=== PATIENT | male | born 1930 | race Caucasian/White ===

== ENCOUNTER 2016-12-20 09:02 | Inpatient (IN) | payer OTHER ==
[~2016-12-20] VITALS: Ht 185.4 cm; Wt 91.1 kg
[~2016-12-20 09:02] MED LIST: AMOX1TAB64 PO; ASPI-515 PO; ATOR40TA PO; CIPR500T87 PO; CLIN300C93 PO; CLON-275 PO; CLON0.1T12 PO; FURO-93 PO; GUAI200T3; HYDR-3341 PO; INSU100V5 SQ; INSU100V8 SQ; ISOS30TA PO; LEVO125T5 PO; OXYC15TA PO; OXYC1TAB7 PO; OXYC20TA2 PO
[2016-12-20] MEDS ORDERED: SODIUM CHLORIDE FLUSH 10ML SYR IVF ONE (10:00)
[2016-12-20 11:02] LABS: BLOOD UREA NITROGEN 24 mg/dL (7-18)
[2016-12-20 11:07] LABS: ASPARTATE AMINO TRANSFERASE 15 U/L (15-37)
[2016-12-20 11:08] LABS: IS PT STATUS REG ER OR PRE ER? YES
[2016-12-20] MEDS ORDERED: ONDANSETRON 2MG/ML, 2ML ONE ×2 (12:51→15:15)
[2016-12-20] MEDS ORDERED: ATROPINE SYRINGE 0.1 MG/ML, 10ML ONE (13:43)
[2016-12-20] MEDS ORDERED: LORazepam 2 MG/ML, 1ML ONE (14:20)
[2016-12-20] MEDS ORDERED: LORazepam 2 MG/ML, 1ML IVPush ONE (14:30)
[2016-12-20] MEDS ORDERED: SODIUM CHLORIDE FLUSH 10ML SYR IVF PRN (15:00)
[2016-12-20] MEDS ORDERED: MORPHINE SULFATE 4 MG/ML, 1ML ONE (15:15)
[2016-12-20] MEDS ORDERED: CEFTRIAXONE PMX 1GM/50ML 50 ML ONE (15:16)
[2016-12-20] MEDS ORDERED: MORPHINE SULFATE 4 MG/ML, 1ML IVPush PRN ×2 (15:30→19:30)
[2016-12-20] MEDS: CEFTRIAXONE PMX 1GM/50ML 50 ML IVPB ONE ×2 (15:30→16:45)
[2016-12-20] MEDS ORDERED: ONDANSETRON 2MG/ML, 2ML IVPush ONE (15:30)
[2016-12-20] MEDS ORDERED: ALBUTEROL/IPRATROPIUM 2.5MG/0.5MG, 3 ML NPPB ONE (16:00)
[2016-12-20 16:10] LABS: IS PT STATUS REG ER OR PRE ER? YES
[2016-12-20 16:21] VITALS: BP 159/108
[2016-12-20] MEDS ORDERED: OMNIPAQUE 350 MG/ML, 100ML BOTTLE ONE (17:11)
[2016-12-20] MEDS ORDERED: FUROSEMIDE 40 MG/4 ML IV ONE (18:00)
[2016-12-20] MEDS ORDERED: ONDANSETRON 2MG/ML, 2ML IVPush PRN (18:00)
[2016-12-20] MEDS: PANTOPROZOLE 40MG TABLET PO SCH (18:47)
[2016-12-20] MEDS ORDERED: INSULIN ASPART 100 UNITS/ML, PEN SQ-INSULIN ONE (19:00)
[2016-12-20] MEDS ORDERED: NITROGLYCERIN 0.4 MG BOTTLE (25 TABS) SL PRN (19:30)
[2016-12-20] MEDS ORDERED: INSULIN ASPART 70/30 100U/ML, PEN SQ-INSULIN ONE (19:30)
[2016-12-20] MEDS ORDERED: ALUMINUM/MAG/SIMETHICONE 30 ML UDC PO PRN (19:30)
[2016-12-20] MEDS ORDERED: DOXYCYCLINE 200 MG in DEXTROSE 5% 250 ML IV ONE ×2 (19:30→19:31)
[2016-12-20 19:59] VITALS: BP 170/78
[2016-12-20] MEDS: CEFTRIAXONE PMX 1GM/50ML 50 ML IV SCH (20:36)
[2016-12-20 20:37] VITALS: BP 143/71
[2016-12-20] MEDS ORDERED: ENOXAPARIN 40 MG/0.4 ML SQ SCH (21:00)
[2016-12-20] MEDS: OxyconTIN ER 10 MG TAB.ER PO SCH (21:09)
[2016-12-20] MEDS: GUAIFENESIN ER 600 MG TABLET PO SCH (21:09)
[2016-12-20] MEDS: ALBUTEROL SULFATE 2.5 MG/3 ML NPPB PRN (21:38)
[2016-12-20] MEDS: INSULIN DETEMIR 100 UNITS/ML, PEN SQ-INSULIN SCH (21:47)
[2016-12-20 22:24] LABS: IS PT STATUS REG ER OR PRE ER? NO
[2016-12-20 23:42] VITALS: BP 131/64
[2016-12-21 03:49] VITALS: BP 131/81
[2016-12-21 04:21] LABS: HEMOGLOBIN 11.2 g/dL (13.7-18.0)
[2016-12-21 04:30] LABS: BLOOD UREA NITROGEN 19 mg/dL (7-18)
[2016-12-21 04:36] LABS: TOTAL IRON BINDING CAPACITY 309 mcg/dL (250-450)
[2016-12-21 04:37] LABS: IS PT STATUS REG ER OR PRE ER? NO
[2016-12-21] MEDS ORDERED: LEVOTHYROXINE 125 MCG TABLET PO SCH (06:00)
[2016-12-21 07:53] VITALS: BP 134/57
[2016-12-21] MEDS ORDERED: DOXYCYCLINE 100 MG in DEXTROSE 5% 250 ML IV SCH (08:00)
[2016-12-21] MEDS ORDERED: INSULIN ASPART 100 UNITS/ML, PEN SQ-INSULIN ONE (09:00)
[2016-12-21] MEDS: PANTOPROZOLE 40MG TABLET PO SCH ×2 (09:15→17:55)
[2016-12-21] MEDS: DOXYCYCLINE 100MG TABLET PO SCH ×2 (09:15→23:57)
[2016-12-21] MEDS: OxyconTIN ER 10 MG TAB.ER PO SCH ×2 (09:15→23:58)
[2016-12-21] MEDS: GUAIFENESIN ER 600 MG TABLET PO SCH ×2 (09:15→23:58)
[2016-12-21] MEDS: METOPROLOL TARTRATE 25 MG TABLET PO SCH (09:15)
[2016-12-21] MEDS: SPIRONOLACTONE 25 MG TABLET PO SCH ×2 (11:22→23:58)
[2016-12-21] MEDS: APIXABAN 5 MG TABLET PO SCH ×2 (11:23→23:58)
[2016-12-21 14:04] VITALS: BP 116/73
[2016-12-21] MEDS: INSULIN ASPART 100 UNITS/ML, PEN SQ-INSULIN SCH ×2 (14:34→18:00)
[2016-12-21] MEDS: OXYcodone IR 5MG TABLET PO PRN (17:55)
[2016-12-21] MEDS: FUROSEMIDE 20 MG/2 ML IV SCH (17:55)
[2016-12-21] MEDS ORDERED: LEVOTHYROXINE 175 MCG TABLET PO ONE (19:30)
[2016-12-21] MEDS: ALBUTEROL SULFATE 2.5 MG/3 ML NPPB PRN (19:30)
[2016-12-21] MEDS ORDERED: METHYLNALTREXONE 12 MG/0.6 ML SQ ONE (19:30)
[2016-12-21] MEDS: SENNOSIDES 8.6 MG TABLET PO SCH (21:00)
[2016-12-21 21:07] VITALS: BP 150/78
[2016-12-21] MEDS: DOCUSATE 100 MG CAPSULE PO SCH (23:58)
[2016-12-21] MEDS: ATORVASTATIN 40 MG TABLET PO SCH (23:58)
[2016-12-21] MEDS: POLYETHYLENE GLYCOL 17 GM PACKET PO SCH (23:59)
[2016-12-22] MEDS: INSULIN DETEMIR 100 UNITS/ML, PEN SQ-INSULIN SCH ×2 (00:05→21:23)
[2016-12-22] MEDS: CEFTRIAXONE PMX 1GM/50ML 50 ML IV SCH ×2 (00:08→20:39)
[2016-12-22 02:33] VITALS: BP 116/79
[2016-12-22] MEDS: LEVOTHYROXINE 175 MCG TABLET PO SCH (05:10)
[2016-12-22 05:13] LABS: BLOOD UREA NITROGEN 24 mg/dL (7-18)
[2016-12-22 07:45] VITALS: BP 129/75
[2016-12-22] MEDS: SENNOSIDES 8.6 MG TABLET PO SCH ×2 (09:00→20:41)
[2016-12-22] MEDS ORDERED: ERGOCALCIFEROL 50,000 UNIT CAPSULE PO SCH (09:00)
[2016-12-22] MEDS: SPIRONOLACTONE 25 MG TABLET PO SCH ×2 (09:00→20:41)
[2016-12-22] MEDS: FUROSEMIDE 20 MG/2 ML IV SCH ×2 (09:00→17:52)
[2016-12-22] MEDS: POLYETHYLENE GLYCOL 17 GM PACKET PO SCH (09:00)
[2016-12-22] MEDS: PANTOPROZOLE 40MG TABLET PO SCH ×2 (09:00→17:52)
[2016-12-22] MEDS: OxyconTIN ER 10 MG TAB.ER PO SCH ×2 (09:00→20:40)
[2016-12-22] MEDS: FERROUS SULFATE 325 MG TABLET PO SCH ×2 (09:01→17:52)
[2016-12-22] MEDS: CHOLECALCIFEROL 1,000 UNIT TABLET PO SCH (09:01)
[2016-12-22] MEDS: DOXYCYCLINE 100MG TABLET PO SCH ×2 (09:01→20:40)
[2016-12-22] MEDS: GUAIFENESIN ER 600 MG TABLET PO SCH ×2 (09:02→20:41)
[2016-12-22] MEDS: DOCUSATE 100 MG CAPSULE PO SCH ×2 (09:02→20:41)
[2016-12-22] MEDS: METOPROLOL TARTRATE 25 MG TABLET PO SCH (09:02)
[2016-12-22] MEDS: APIXABAN 5 MG TABLET PO SCH ×2 (09:02→20:41)
[2016-12-22] MEDS: CALCIUM CITRATE 950 MG TABLET PO SCH (09:02)
[2016-12-22] MEDS: INSULIN ASPART 100 UNIT/ML SQ-INSULIN SCH ×3 (09:18→17:53)
[2016-12-22 12:45] VITALS: BP 136/69
[2016-12-22] MEDS: OXYcodone IR 5MG TABLET PO PRN ×2 (15:05→18:06)
[2016-12-22 20:13] VITALS: BP 137/77
[2016-12-22] MEDS: ATORVASTATIN 40 MG TABLET PO SCH (20:40)
[2016-12-23 02:44] VITALS: BP 136/72
[2016-12-23] MEDS: LEVOTHYROXINE 175 MCG TABLET PO SCH (06:34)
[2016-12-23 06:40] VITALS: BP 120/70
[2016-12-23] MEDS: INSULIN ASPART 100 UNIT/ML SQ-INSULIN SCH ×3 (06:47→16:40)
[2016-12-23] MEDS: FUROSEMIDE 20 MG/2 ML IV SCH ×2 (09:37→16:39)
[2016-12-23] MEDS: SPIRONOLACTONE 25 MG TABLET PO SCH ×2 (09:38→19:54)
[2016-12-23] MEDS: DOXYCYCLINE 100MG TABLET PO SCH ×2 (09:38→21:13)
[2016-12-23] MEDS: CHOLECALCIFEROL 1,000 UNIT TABLET PO SCH (09:38)
[2016-12-23] MEDS: METOPROLOL TARTRATE 25 MG TABLET PO SCH (09:38)
[2016-12-23] MEDS: SENNOSIDES 8.6 MG TABLET PO SCH ×2 (09:38→21:00)
[2016-12-23] MEDS: CALCIUM CITRATE 950 MG TABLET PO SCH (09:38)
[2016-12-23] MEDS: PANTOPROZOLE 40MG TABLET PO SCH ×2 (09:39→16:39)
[2016-12-23] MEDS: APIXABAN 5 MG TABLET PO SCH ×2 (09:39→19:55)
[2016-12-23] MEDS: FERROUS SULFATE 325 MG TABLET PO SCH ×2 (09:39→16:39)
[2016-12-23] MEDS: POLYETHYLENE GLYCOL 17 GM PACKET PO SCH (09:39)
[2016-12-23] MEDS: OxyconTIN ER 10 MG TAB.ER PO SCH ×2 (09:40→21:13)
[2016-12-23] MEDS: DOCUSATE 100 MG CAPSULE PO SCH ×2 (10:31→21:13)
[2016-12-23] MEDS: GUAIFENESIN ER 600 MG TABLET PO SCH ×2 (10:31→19:55)
[2016-12-23 12:40] VITALS: BP 119/64
[2016-12-23] MEDS: OXYcodone IR 5MG TABLET PO PRN ×2 (12:48→16:40)
[2016-12-23] MEDS ORDERED: INSULIN ASPART 100 UNITS/ML, PEN SQ-INSULIN SCH (17:30)
[2016-12-23] MEDS: CEFTRIAXONE PMX 1GM/50ML 50 ML IV SCH (19:54)
[2016-12-23] MEDS: ATORVASTATIN 40 MG TABLET PO SCH (19:55)
[2016-12-23] MEDS: INSULIN DETEMIR 100 UNITS/ML, PEN SQ-INSULIN SCH (19:56)
[2016-12-23 19:59] VITALS: BP 130/66
[2016-12-24 02:01] VITALS: BP 123/69
[2016-12-24] MEDS: LEVOTHYROXINE 175 MCG TABLET PO SCH (05:03)
[2016-12-24 05:59] LABS: HEMOGLOBIN 11.7 g/dL (13.7-18.0)
[2016-12-24 06:43] LABS: ASPARTATE AMINO TRANSFERASE 20 U/L (15-37); BLOOD UREA NITROGEN 22 mg/dL (7-18)
[2016-12-24] MEDS ORDERED: INSULIN ASPART 100 UNITS/ML, PEN SQ-INSULIN SCH (07:00)
[2016-12-24] MEDS: INSULIN ASPART 100 UNITS/ML, PEN SQ-INSULIN SCH ×2 (07:50→13:19)
[2016-12-24 08:45] VITALS: BP 147/74
[2016-12-24] MEDS: OxyconTIN ER 10 MG TAB.ER PO SCH (09:16)
[2016-12-24] MEDS: FUROSEMIDE 20 MG/2 ML IV SCH (09:16)
[2016-12-24] MEDS: CALCIUM CITRATE 950 MG TABLET PO SCH (09:17)
[2016-12-24] MEDS: GUAIFENESIN ER 600 MG TABLET PO SCH (09:17)
[2016-12-24] MEDS: DOXYCYCLINE 100MG TABLET PO SCH (09:17)
[2016-12-24] MEDS: FERROUS SULFATE 325 MG TABLET PO SCH (09:17)
[2016-12-24] MEDS: PANTOPROZOLE 40MG TABLET PO SCH (09:17)
[2016-12-24] MEDS: CHOLECALCIFEROL 1,000 UNIT TABLET PO SCH (09:17)
[2016-12-24] MEDS: APIXABAN 5 MG TABLET PO SCH (09:17)
[2016-12-24] MEDS: SPIRONOLACTONE 25 MG TABLET PO SCH (09:18)
[2016-12-24] MEDS: METOPROLOL TARTRATE 25 MG TABLET PO SCH (09:18)
[2016-12-24] MEDS: POLYETHYLENE GLYCOL 17 GM PACKET PO SCH (09:18)
[2016-12-24] MEDS: DOCUSATE 100 MG CAPSULE PO SCH (09:24)
[2016-12-24] MEDS: SENNOSIDES 8.6 MG TABLET PO SCH (09:29)
[2016-12-24] MEDS ORDERED: APIX5TAB PO (14:16)
[2016-12-24] MEDS ORDERED: FERR325T20 PO (14:16)
[2016-12-24] MEDS ORDERED: DOXY100T PO (14:16)
[2016-12-24] MEDS ORDERED: CHOL10003 PO (14:16)
[2016-12-24] MEDS ORDERED: CALC200T20 PO (14:16)
[2016-12-24 14:30] VITALS: BP 124/72
[2016-12-24] MEDS ORDERED: CEPH-368 PO (16:16)
[2016-12-24] MEDS ORDERED: METO25TA35 PO (16:17)
[2016-12-24] MEDS ORDERED: SPIR25TA3 PO (16:18)
[2016-12-25] MEDS ORDERED: LISINOPRIL 10 MG TABLET PO SCH (09:00)
== END 2016-12-24 17:22 | disposition home health service (06) | DRG 291 ==
LOC: ED 13:11 → EDIP 14:46 → 5SO 16:11 → DCLOUNGE 12-24 15:49
PROVIDERS: ADMIT Internal Medicine; ATTEND Internal Medicine
DX: I13.0 Hypertensive heart and chronic kidney disease with heart failure and stage 1 through stage 4 chronic kidney disease, or unspecified chronic kidney disease (principal); J96.01 Acute respiratory failure with hypoxia; J98.11 Atelectasis; F11.20 Opioid dependence, uncomplicated; D68.69 Other thrombophilia; I50.20 Unspecified systolic (congestive) heart failure; L03.119 Cellulitis of unspecified part of limb; I48.92 Unspecified atrial flutter; I48.91 Unspecified atrial fibrillation; E03.9 Hypothyroidism, unspecified; E10.40 Type 1 diabetes mellitus with diabetic neuropathy, unspecified; E10.65 Type 1 diabetes mellitus with hyperglycemia; Z96.1 Presence of intraocular lens; E78.5 Hyperlipidemia, unspecified; I89.0 Lymphedema, not elsewhere classified; K59.09 Other constipation; E55.9 Vitamin D deficiency, unspecified; N18.9 Chronic kidney disease, unspecified; G89.29 Other chronic pain; I25.10 Atherosclerotic heart disease of native coronary artery without angina pectoris; Z66 Do not resuscitate; J44.9 Chronic obstructive pulmonary disease, unspecified; I87.8 Other specified disorders of veins; G14 Postpolio syndrome; E10.22 Type 1 diabetes mellitus with diabetic chronic kidney disease; D64.9 Anemia, unspecified; K21.9 Gastro-esophageal reflux disease without esophagitis; M81.0 Age-related osteoporosis without current pathological fracture; I25.2 Old myocardial infarction; Z99.81 Dependence on supplemental oxygen; Z95.1 Presence of aortocoronary bypass graft; Z79.4 Long term (current) use of insulin; Z23 Encounter for immunization; Z82.49 Family history of ischemic heart disease and other diseases of the circulatory system; Z98.41 Cataract extraction status, right eye; Z98.42 Cataract extraction status, left eye; Z82.5 Family history of asthma and other chronic lower respiratory diseases; Z87.01 Personal history of pneumonia (recurrent); M54.9 Dorsalgia, unspecified
CPT/HCPCS: 36415; 71010; 71275; 80048; 80053; 80061; 81001; 82306; 82728; 82962; 83036; 83540; 83550; 83605; 83880; 84443; 84484; 85025; 85045; 85610; 85730; 87040; 87070; 87205; 93005; 96374; 96375; C8929; J0696; J1650; J1815; J1940; J2405; J7060; J7613; Q9967; J2060

== ENCOUNTER 2017-02-02 20:23 | Emergency (ER) | payer OTHER ==
[~2017-02-02] VITALS: Ht 185.4 cm; Wt 92.2 kg
[~2017-02-02 20:23] MED LIST changes: +APIX5TAB PO; +CALC200T20 PO; +CEPH-368 PO; +CHOL10003 PO; +DOXY100T PO; +FERR325T20 PO; +METO25TA35 PO; +SPIR25TA3 PO
[2017-02-02] MEDS ORDERED: SODIUM CHLORIDE 0.9% 1,000 ML IV ONE (20:56)
[2017-02-02] MEDS ORDERED: ONDANSETRON 2MG/ML, 2ML ONE (21:00)
[2017-02-02] MEDS ORDERED: MORPHINE SULFATE 4 MG/ML, 1ML ONE (21:00)
[2017-02-02] MEDS ORDERED: MORPHINE SULFATE 4 MG/ML, 1ML IVPush PRN (21:00)
[2017-02-02] MEDS ORDERED: ONDANSETRON 2MG/ML, 2ML IVPush ONE (21:00)
[2017-02-02] MEDS ORDERED: SODIUM CHLORIDE FLUSH 10ML SYR IVF ONE (21:00)
[2017-02-02 21:08] LABS: ASPARTATE AMINO TRANSFERASE 13 U/L (15-37); BLOOD UREA NITROGEN 31 mg/dL (7-18)
[2017-02-02 21:19] LABS: IS PT STATUS REG ER OR PRE ER? YES
[2017-02-02 23:35] VITALS: BP 118/48
== END 2017-02-02 23:51 | disposition home or self-care (01) ==
LOC: ED 23:45
DX: R10.30 Lower abdominal pain, unspecified (principal); Z90.49 Acquired absence of other specified parts of digestive tract
CPT/HCPCS: 36415; 74176; 80053; 81003; 84484; 85025; 93005; 96361; 96374; 96375; 99285; J2405; J7030

== ENCOUNTER 2017-03-07 20:51 | Inpatient (IN) | payer OTHER ==
[~2017-03-07] VITALS: Ht 185.4 cm; Wt 101.7 kg
[2017-03-07] MEDS ORDERED: SODIUM CHLORIDE 0.9% 1,000 ML IV ONE (21:07)
[2017-03-07] MEDS ORDERED: ONDANSETRON 2MG/ML, 2ML ONE (21:21)
[2017-03-07] MEDS ORDERED: SODIUM CHLORIDE FLUSH 10ML SYR IVF ONE (21:30)
[2017-03-07] MEDS ORDERED: ONDANSETRON 2MG/ML, 2ML IVPush ONE (21:30)
[2017-03-07 21:47] LABS: PH, VENOUS 7.182 pH (7.320-7.420)
[2017-03-07] MEDS ORDERED: FENTANYL PF 100 MCG/2ML ONE (21:48)
[2017-03-07 22:00] LABS: ASPARTATE AMINO TRANSFERASE 18 U/L (15-37); BLOOD UREA NITROGEN 40 mg/dL (7-18)
[2017-03-07] MEDS ORDERED: FENTANYL PF 100 MCG/2ML IV ONE (22:00)
[2017-03-07 22:09] LABS: IS PT STATUS REG ER OR PRE ER? YES
[2017-03-07] MEDS ORDERED: SODIUM CHLORIDE 0.9% 1,000ML IVBOLUS ONE ×2 (22:30→23:00)
[2017-03-07] MEDS ORDERED: INSU100V8 SQ (22:33)
[2017-03-07] MEDS ORDERED: SPIR25TA3 PO (22:33)
[2017-03-07] MEDS ORDERED: DOCU-30 PO (22:33)
[2017-03-07] MEDS ORDERED: SODIUM BICARBONATE 1 MEQ/ML, 50ML VIAL ONE (22:58)
[2017-03-07] MEDS ORDERED: MAGNESIUM SULFATE PMX 2GM/50ML 50 ML IV ONE (23:00)
[2017-03-07] MEDS ORDERED: SODIUM BICARBONATE 1 MEQ/ML, 50ML VIAL IVPush ONE (23:00)
[2017-03-07] MEDS: REGULAR INSULIN 62.5 UNITS in SODIUM CHLORIDE 0.9% 249.375 ML IV PRN (23:11)
[2017-03-08] MEDS: MORPHINE SULFATE 4 MG/ML, 1ML IVPush PRN ×3 (01:41→17:10)
[2017-03-08] MEDS: ONDANSETRON 2MG/ML, 2ML IVPush SCH ×6 (01:41→22:00)
[2017-03-08 01:49] LABS: BLOOD UREA NITROGEN 42 mg/dL (7-18)
[2017-03-08] MEDS ORDERED: SODIUM CHLORIDE 0.9% 1,000 ML IV SCH ×2 (02:00)
[2017-03-08] MEDS ORDERED: D5%-0.45% NACL 1,000 ML IV SCH (02:00)
[2017-03-08] MEDS ORDERED: SODIUM BICARB 8.4%, 50ML SYRINGE IV SCH ×2 (02:00)
[2017-03-08] MEDS ORDERED: METHYLNALTREXONE 12 MG/0.6 ML SQ ONE (02:30)
[2017-03-08] MEDS ORDERED: MORPHINE SULFATE 4 MG/ML, 1ML IVPush PRN (02:30)
[2017-03-08] MEDS ORDERED: NITROGLYCERIN 0.4 MG BOTTLE (25 TABS) SL PRN (02:30)
[2017-03-08 03:46] LABS: BLOOD UREA NITROGEN 42 mg/dL (7-18)
[2017-03-08 03:52] LABS: IS PT STATUS REG ER OR PRE ER? NO
[2017-03-08 05:11] VITALS: BP 127/48
[2017-03-08] MEDS: REGULAR INSULIN 62.5 UNITS in SODIUM CHLORIDE 0.9% 249.375 ML IV PRN (05:44)
[2017-03-08] MEDS: PANTOPRAZOLE 40 MG IV IVPush SCH ×2 (05:44→19:45)
[2017-03-08] MEDS: LEVOTHYROXINE 175 MCG TABLET PO SCH (05:44)
[2017-03-08] MEDS ORDERED: METOPROLOL TARTRATE 25 MG TABLET PO SCH (06:00)
[2017-03-08 06:04] LABS: BLOOD UREA NITROGEN 41 mg/dL (7-18)
[2017-03-08] MEDS ORDERED: INSULIN ASPART 100 UNITS/ML, PEN SQ-INSULIN SCH (07:00)
[2017-03-08] MEDS: INSULIN ASPART 100 UNITS/ML, PEN SQ-INSULIN SCH ×4 (07:00→18:35)
[2017-03-08 07:54] LABS: BLOOD UREA NITROGEN 40 mg/dL (7-18)
[2017-03-08] MEDS ORDERED: ASPIRIN 81 MG TABLET CHEW PO ONE (08:30)
[2017-03-08] MEDS ORDERED: HEPARIN 5,000 UNITS/ML, 1ML IV PRN (09:00)
[2017-03-08] MEDS ORDERED: APIXABAN 2.5 MG TABLET PO SCH (09:00)
[2017-03-08] MEDS ORDERED: HEPARIN 5,000 UNITS/ML, 1ML IV ONE (09:00)
[2017-03-08 09:28] LABS: BLOOD UREA NITROGEN 39 mg/dL (7-18)
[2017-03-08] MEDS ORDERED: PROMETHAZINE 25 MG/ML, 1ML IM PRN (09:30)
[2017-03-08 09:36] LABS: IS PT STATUS REG ER OR PRE ER? NO
[2017-03-08] MEDS: HEPARIN 25,000 UNITS/500ML PMX 500 ML IV PRN (09:52)
[2017-03-08] MEDS: ASPIRIN 81 MG TABLET EC PO SCH (10:00)
[2017-03-08] MEDS: DOCUSATE 100 MG CAPSULE PO SCH ×2 (10:01→20:52)
[2017-03-08] MEDS: CHOLECALCIFEROL 1,000 UNIT TABLET PO SCH (10:02)
[2017-03-08 13:16] LABS: BLOOD UREA NITROGEN 38 mg/dL (7-18)
[2017-03-08 16:23] LABS: BLOOD UREA NITROGEN 38 mg/dL (7-18)
[2017-03-08 16:39] LABS: IS PT STATUS REG ER OR PRE ER? NO
[2017-03-08] MEDS: MORPHINE SULFATE 4 MG/ML, 1ML IV PRN ×2 (19:35→22:01)
[2017-03-08] MEDS ORDERED: DOXYCYCLINE 200 MG in DEXTROSE 5% 250 ML IV ONE (20:00)
[2017-03-08] MEDS ORDERED: CEFTRIAXONE PMX 2GM/50ML 50 ML IVPB ONE (20:00)
[2017-03-08] MEDS: OxyconTIN ER 20 MG TAB.ER PO SCH (20:52)
[2017-03-08] MEDS: ATORVASTATIN 40 MG TABLET PO SCH (20:52)
[2017-03-08] MEDS ORDERED: REGULAR INSULIN 62.5 UNITS in SODIUM CHLORIDE 0.9% 249.375 ML IV SCH (21:30)
[2017-03-08] MEDS: D5%-0.45% NACL 1,000 ML IV SCH (21:50)
[2017-03-08 22:17] LABS: PATH.CAST-FLAG NOT PRESENT; SPERM-FLAG NOT PRESENT; SRC-FLAG NOT PRESENT; XTAL-FLAG NOT PRESENT; YLC-FLAG NOT PRESENT
[2017-03-08 22:44] LABS: BLOOD UREA NITROGEN 38 mg/dL (7-18)
[2017-03-09] MEDS ORDERED: D5%-0.45% NACL 1,000 ML IV SCH (02:00)
[2017-03-09] MEDS: SODIUM CHLORIDE 0.9% 1,000 ML IV SCH ×2 (02:00→15:13)
[2017-03-09 02:42] LABS: BLOOD UREA NITROGEN 38 mg/dL (7-18)
[2017-03-09] MEDS: ONDANSETRON 2MG/ML, 2ML IVPush SCH ×5 (02:57→17:30)
[2017-03-09 04:00] VITALS: BP 107/55
[2017-03-09] MEDS: SODIUM CHLORIDE 0.9% 250 ML IV SCH ×5 (05:00→09:00)
[2017-03-09] MEDS: PANTOPRAZOLE 40 MG IV IVPush SCH ×2 (05:49→18:04)
[2017-03-09] MEDS: LEVOTHYROXINE 175 MCG TABLET PO SCH (05:49)
[2017-03-09 06:47] LABS: BLOOD UREA NITROGEN 36 mg/dL (7-18)
[2017-03-09 06:50] LABS: ASPARTATE AMINO TRANSFERASE 42 U/L (15-37)
[2017-03-09 09:37] LABS: BLOOD UREA NITROGEN 36 mg/dL (7-18)
[2017-03-09] MEDS: DOXYCYCLINE 100 MG in DEXTROSE 5% 250 ML IV SCH ×2 (09:43→21:38)
[2017-03-09] MEDS: MORPHINE SULFATE 4 MG/ML, 1ML IV PRN ×3 (09:43→18:04)
[2017-03-09] MEDS: POLYETHYLENE GLYCOL 17 GM PACKET PO SCH (09:44)
[2017-03-09] MEDS: DOCUSATE 100 MG CAPSULE PO SCH ×2 (09:44→21:38)
[2017-03-09] MEDS: CHOLECALCIFEROL 1,000 UNIT TABLET PO SCH (09:44)
[2017-03-09] MEDS: D5%-0.45% NACL 1,000 ML IV SCH (09:47)
[2017-03-09] MEDS: OxyconTIN ER 20 MG TAB.ER PO SCH ×2 (11:17→21:37)
[2017-03-09] MEDS: HEPARIN 25,000 UNITS/500ML PMX 500 ML IV PRN (11:25)
[2017-03-09] MEDS ORDERED: INSULIN DETEMIR 100 UNITS/ML, PEN ONE (13:20)
[2017-03-09] MEDS: INSULIN DETEMIR 100 UNITS/ML, PEN SQ-INSULIN SCH ×2 (13:23→21:40)
[2017-03-09 13:26] LABS: BLOOD UREA NITROGEN 34 mg/dL (7-18)
[2017-03-09 16:27] LABS: BLOOD UREA NITROGEN 34 mg/dL (7-18)
[2017-03-09] MEDS: CEFTRIAXONE PMX 1GM/50ML 50 ML IV SCH (20:16)
[2017-03-09] MEDS ORDERED: ONDANSETRON 2MG/ML, 2ML IVPush PRN (21:30)
[2017-03-09] MEDS: ATORVASTATIN 40 MG TABLET PO SCH (21:38)
[2017-03-09] MEDS: INSULIN ASPART 100 UNITS/ML, PEN SQ-INSULIN SCH (21:39)
[2017-03-09] MEDS: RISPERIDONE 1 MG TABLET PO SCH (23:02)
[2017-03-10] MEDS: SODIUM CHLORIDE 0.9% 1,000 ML IV SCH ×3 (01:50→19:49)
[2017-03-10 04:00] VITALS: BP 121/53
[2017-03-10 05:48] LABS: BLOOD UREA NITROGEN 28 mg/dL (7-18)
[2017-03-10] MEDS: ASPIRIN 81 MG TABLET EC PO SCH (06:07)
[2017-03-10] MEDS: PANTOPRAZOLE 40 MG IV IVPush SCH ×2 (06:07→16:55)
[2017-03-10] MEDS: LEVOTHYROXINE 175 MCG TABLET PO SCH (06:07)
[2017-03-10] MEDS: MORPHINE SULFATE 4 MG/ML, 1ML IV PRN ×3 (06:09→18:20)
[2017-03-10] MEDS: INSULIN ASPART 100 UNITS/ML, PEN SQ-INSULIN SCH ×4 (07:00→21:15)
[2017-03-10] MEDS: APIXABAN 5 MG TABLET PO SCH ×2 (09:00→21:05)
[2017-03-10] MEDS: INSULIN DETEMIR 100 UNITS/ML, PEN SQ-INSULIN SCH ×2 (09:00→21:16)
[2017-03-10] MEDS: CHOLECALCIFEROL 1,000 UNIT TABLET PO SCH (09:32)
[2017-03-10] MEDS: POLYETHYLENE GLYCOL 17 GM PACKET PO SCH (09:32)
[2017-03-10] MEDS: DOXYCYCLINE 100 MG in DEXTROSE 5% 250 ML IV SCH ×2 (09:32→23:32)
[2017-03-10] MEDS: SPIRONOLACTONE 25 MG TABLET PO SCH (09:33)
[2017-03-10] MEDS: DOCUSATE 100 MG CAPSULE PO SCH ×2 (09:33→21:14)
[2017-03-10] MEDS: RISPERIDONE 1 MG TABLET PO SCH ×2 (09:33→21:05)
[2017-03-10] MEDS: OxyconTIN ER 20 MG TAB.ER PO SCH ×2 (09:34→21:00)
[2017-03-10 10:49] LABS: BLOOD UREA NITROGEN 26 mg/dL (7-18)
[2017-03-10 14:03] LABS: BLOOD UREA NITROGEN 25 mg/dL (7-18)
[2017-03-10] MEDS: LEVOFLOXACIN/PMX 500MG/100ML 100 ML IV SCH (14:24)
[2017-03-10 17:54] LABS: BLOOD UREA NITROGEN 24 mg/dL (7-18)
[2017-03-10 20:49] VITALS: BP 153/70
[2017-03-10] MEDS ORDERED: OxyconTIN ER 10 MG TAB.ER ONE (20:54)
[2017-03-10] MEDS: CEFTRIAXONE PMX 1GM/50ML 50 ML IV SCH (21:04)
[2017-03-10] MEDS: ATORVASTATIN 40 MG TABLET PO SCH (21:05)
[2017-03-11 01:19] VITALS: BP 179/70
[2017-03-11] MEDS: MORPHINE SULFATE 4 MG/ML, 1ML IV PRN ×3 (01:29→22:57)
[2017-03-11 01:35] VITALS: BP 143/61
[2017-03-11] MEDS: PANTOPRAZOLE 40 MG IV IVPush SCH ×2 (04:50→17:53)
[2017-03-11] MEDS: ASPIRIN 81 MG TABLET EC PO SCH (04:50)
[2017-03-11] MEDS: LEVOTHYROXINE 175 MCG TABLET PO SCH (04:50)
[2017-03-11 06:00] LABS: BLOOD UREA NITROGEN 21 mg/dL (7-18)
[2017-03-11] MEDS: INSULIN ASPART 100 UNITS/ML, PEN SQ-INSULIN SCH ×4 (07:00→20:08)
[2017-03-11 07:45] VITALS: BP 166/78
[2017-03-11] MEDS: POLYETHYLENE GLYCOL 17 GM PACKET PO SCH (09:36)
[2017-03-11] MEDS: DOCUSATE 100 MG CAPSULE PO SCH ×2 (09:36→19:46)
[2017-03-11] MEDS: RISPERIDONE 1 MG TABLET PO SCH ×2 (09:36→19:46)
[2017-03-11] MEDS: SPIRONOLACTONE 25 MG TABLET PO SCH (09:36)
[2017-03-11] MEDS: APIXABAN 5 MG TABLET PO SCH ×2 (09:36→19:46)
[2017-03-11] MEDS: OxyconTIN ER 20 MG TAB.ER PO SCH ×2 (09:36→19:46)
[2017-03-11] MEDS: CHOLECALCIFEROL 1,000 UNIT TABLET PO SCH (09:36)
[2017-03-11] MEDS: SODIUM CHLORIDE 0.9% 1,000 ML IV SCH ×2 (09:37→21:53)
[2017-03-11] MEDS: INSULIN DETEMIR 100 UNITS/ML, PEN SQ-INSULIN SCH ×2 (09:38→20:08)
[2017-03-11] MEDS: DOXYCYCLINE 100 MG in DEXTROSE 5% 250 ML IV SCH ×2 (11:03→23:01)
[2017-03-11 14:45] VITALS: BP 154/81
[2017-03-11] MEDS: LEVOFLOXACIN/PMX 500MG/100ML 100 ML IV SCH (17:06)
[2017-03-11] MEDS: FUROSEMIDE 20 MG/2 ML IV SCH (17:06)
[2017-03-11] MEDS: METOPROLOL TARTRATE 25 MG TABLET PO SCH (17:53)
[2017-03-11] MEDS: CEFTRIAXONE PMX 1GM/50ML 50 ML IV SCH (19:45)
[2017-03-11] MEDS: ATORVASTATIN 40 MG TABLET PO SCH (19:46)
[2017-03-11] MEDS: LISINOPRIL 10 MG TABLET PO SCH (19:46)
[2017-03-11 19:49] VITALS: BP 158/82
[2017-03-12 01:37] VITALS: BP 149/76
[2017-03-12 05:07] VITALS: BP 121/67
[2017-03-12] MEDS: ASPIRIN 81 MG TABLET EC PO SCH (05:18)
[2017-03-12] MEDS: LEVOTHYROXINE 175 MCG TABLET PO SCH (05:18)
[2017-03-12] MEDS: PANTOPRAZOLE 40 MG IV IVPush SCH ×2 (05:18→17:04)
[2017-03-12] MEDS: MORPHINE SULFATE 4 MG/ML, 1ML IV PRN ×2 (05:18→22:37)
[2017-03-12 05:58] LABS: BLOOD UREA NITROGEN 17 mg/dL (7-18)
[2017-03-12] MEDS ORDERED: DEXTROSE 50%, 50ML VIAL ONE (06:10)
[2017-03-12] MEDS ORDERED: DEXTROSE 50%, 50ML VIAL IVPush ONE (07:00)
[2017-03-12] MEDS: INSULIN ASPART 100 UNITS/ML, PEN SQ-INSULIN SCH ×4 (07:00→21:00)
[2017-03-12 07:34] LABS: TOTAL IRON BINDING CAPACITY 193 mcg/dL (250-450)
[2017-03-12] MEDS ORDERED: REGADENOSON 0.4 MG/5 ML SYRINGE ONE (07:51)
[2017-03-12] MEDS: FUROSEMIDE 20 MG/2 ML IV SCH (09:56)
[2017-03-12] MEDS: INSULIN DETEMIR 100 UNITS/ML, PEN SQ-INSULIN SCH (09:56)
[2017-03-12] MEDS: POLYETHYLENE GLYCOL 17 GM PACKET PO SCH (11:44)
[2017-03-12] MEDS: DOCUSATE 100 MG CAPSULE PO SCH ×2 (11:45→22:24)
[2017-03-12] MEDS: RISPERIDONE 1 MG TABLET PO SCH ×2 (11:45→22:25)
[2017-03-12] MEDS: SPIRONOLACTONE 25 MG TABLET PO SCH (11:45)
[2017-03-12] MEDS: APIXABAN 5 MG TABLET PO SCH ×2 (11:45→22:24)
[2017-03-12] MEDS: LISINOPRIL 10 MG TABLET PO SCH ×2 (11:45→22:25)
[2017-03-12] MEDS: CHOLECALCIFEROL 1,000 UNIT TABLET PO SCH (11:45)
[2017-03-12] MEDS: OxyconTIN ER 20 MG TAB.ER PO SCH ×2 (11:46→20:34)
[2017-03-12] MEDS: METOPROLOL TARTRATE 25 MG TABLET PO SCH ×2 (11:46→17:05)
[2017-03-12] MEDS: DOXYCYCLINE 100 MG in DEXTROSE 5% 250 ML IV SCH (11:59)
[2017-03-12 15:25] VITALS: BP 137/76
[2017-03-12 16:48] LABS: ASPARTATE AMINO TRANSFERASE 22 U/L (15-37)
[2017-03-12] MEDS: LEVOFLOXACIN/PMX 500MG/100ML 100 ML IV SCH (17:04)
[2017-03-12 20:07] VITALS: BP 131/69
[2017-03-12] MEDS: ATORVASTATIN 40 MG TABLET PO SCH (22:24)
[2017-03-13] MEDS: DOXYCYCLINE 100 MG in DEXTROSE 5% 250 ML IV SCH ×2 (00:53→11:36)
[2017-03-13] MEDS: MORPHINE SULFATE 4 MG/ML, 1ML IV PRN ×6 (02:27→22:00)
[2017-03-13 02:45] VITALS: BP 168/72
[2017-03-13 05:28] LABS: BLOOD UREA NITROGEN 18 mg/dL (7-18)
[2017-03-13] MEDS: ASPIRIN 81 MG TABLET EC PO SCH (06:20)
[2017-03-13] MEDS: LEVOTHYROXINE 175 MCG TABLET PO SCH (06:20)
[2017-03-13] MEDS: METOPROLOL TARTRATE 25 MG TABLET PO SCH ×2 (06:20→16:52)
[2017-03-13] MEDS: PANTOPRAZOLE 40 MG IV IVPush SCH ×2 (06:32→16:52)
[2017-03-13 07:37] VITALS: BP 156/74
[2017-03-13] MEDS: RISPERIDONE 1 MG TABLET PO SCH ×2 (08:16→21:51)
[2017-03-13] MEDS: LISINOPRIL 10 MG TABLET PO SCH ×2 (08:16→21:51)
[2017-03-13] MEDS: DOCUSATE 100 MG CAPSULE PO SCH ×2 (08:16→21:51)
[2017-03-13] MEDS: INSULIN ASPART 100 UNITS/ML, PEN SQ-INSULIN SCH ×4 (08:16→23:08)
[2017-03-13] MEDS: APIXABAN 5 MG TABLET PO SCH ×2 (08:16→21:51)
[2017-03-13] MEDS: SPIRONOLACTONE 25 MG TABLET PO SCH (08:16)
[2017-03-13] MEDS: CHOLECALCIFEROL 1,000 UNIT TABLET PO SCH (08:17)
[2017-03-13] MEDS: OxyconTIN ER 20 MG TAB.ER PO SCH ×2 (08:17→21:52)
[2017-03-13] MEDS: POLYETHYLENE GLYCOL 17 GM PACKET PO SCH (08:17)
[2017-03-13] MEDS: INSULIN DETEMIR 100 UNITS/ML, PEN SQ-INSULIN SCH (08:18)
[2017-03-13 15:16] VITALS: BP 118/71
[2017-03-13] MEDS ORDERED: MAGNESIUM HYDROXIDE 8%, 30ML UDC PO PRN (16:00)
[2017-03-13] MEDS: LEVOFLOXACIN/PMX 500MG/100ML 100 ML IV SCH (16:51)
[2017-03-13] MEDS: METHYLNALTREXONE 12 MG/0.6 ML SQ SCH (16:51)
[2017-03-13 20:27] VITALS: BP 131/69
[2017-03-13] MEDS: ATORVASTATIN 40 MG TABLET PO SCH (21:52)
[2017-03-14] MEDS: DOXYCYCLINE 100 MG in DEXTROSE 5% 250 ML IV SCH ×3 (00:28→22:57)
[2017-03-14] MEDS: MORPHINE SULFATE 4 MG/ML, 1ML IV PRN ×2 (01:08→14:22)
[2017-03-14 02:50] VITALS: BP 150/75
[2017-03-14 06:29] LABS: BLOOD UREA NITROGEN 25 mg/dL (7-18)
[2017-03-14 06:45] VITALS: BP 151/74
[2017-03-14] MEDS: METOPROLOL TARTRATE 25 MG TABLET PO SCH ×2 (06:57→18:46)
[2017-03-14] MEDS: PANTOPRAZOLE 40 MG IV IVPush SCH ×2 (06:57→18:46)
[2017-03-14 06:58] LABS: BLOOD UREA NITROGEN 25 mg/dL (7-18)
[2017-03-14] MEDS: ASPIRIN 81 MG TABLET EC PO SCH (06:58)
[2017-03-14] MEDS: LEVOTHYROXINE 175 MCG TABLET PO SCH (06:58)
[2017-03-14] MEDS: INSULIN ASPART 100 UNITS/ML, PEN SQ-INSULIN SCH ×4 (08:34→23:28)
[2017-03-14] MEDS: SPIRONOLACTONE 25 MG TABLET PO SCH (08:36)
[2017-03-14] MEDS: CHOLECALCIFEROL 1,000 UNIT TABLET PO SCH (08:36)
[2017-03-14] MEDS: DOCUSATE 100 MG CAPSULE PO SCH ×2 (08:37→20:48)
[2017-03-14] MEDS: POLYETHYLENE GLYCOL 17 GM PACKET PO SCH (08:37)
[2017-03-14] MEDS: APIXABAN 5 MG TABLET PO SCH ×2 (08:37→20:48)
[2017-03-14] MEDS: FUROSEMIDE 40 MG TABLET PO SCH (08:37)
[2017-03-14] MEDS: LISINOPRIL 10 MG TABLET PO SCH ×2 (08:37→20:49)
[2017-03-14] MEDS: RISPERIDONE 1 MG TABLET PO SCH ×2 (08:37→20:48)
[2017-03-14] MEDS: OxyconTIN ER 20 MG TAB.ER PO SCH ×2 (08:44→20:48)
[2017-03-14] MEDS: INSULIN DETEMIR 100 UNITS/ML, PEN SQ-INSULIN SCH (09:02)
[2017-03-14] MEDS ORDERED: MAGNESIUM CITRATE 300ML ORAL SOL PO ONE (14:00)
[2017-03-14 14:38] VITALS: BP 111/72
[2017-03-14] MEDS ORDERED: OMNIPAQUE 350 MG/ML, 100ML BOTTLE ONE (17:46)
[2017-03-14] MEDS: LEVOFLOXACIN/PMX 500MG/100ML 100 ML IV SCH (18:44)
[2017-03-14 19:07] VITALS: BP 155/76
[2017-03-14] MEDS ORDERED: BISACODYL 10 MG SUPP PR PRN (19:30)
[2017-03-14] MEDS: ATORVASTATIN 40 MG TABLET PO SCH (20:47)
[2017-03-15 02:06] VITALS: BP 119/73
[2017-03-15 05:08] LABS: BLOOD UREA NITROGEN 29 mg/dL (7-18)
[2017-03-15] MEDS: PANTOPRAZOLE 40 MG IV IVPush SCH ×2 (06:01→17:00)
[2017-03-15] MEDS: LEVOTHYROXINE 175 MCG TABLET PO SCH (06:03)
[2017-03-15] MEDS: ASPIRIN 81 MG TABLET EC PO SCH (06:04)
[2017-03-15 08:53] VITALS: BP 116/65
[2017-03-15] MEDS: CHOLECALCIFEROL 1,000 UNIT TABLET PO SCH (09:15)
[2017-03-15] MEDS: LISINOPRIL 10 MG TABLET PO SCH ×2 (09:15→22:34)
[2017-03-15] MEDS: FUROSEMIDE 40 MG TABLET PO SCH (09:15)
[2017-03-15] MEDS: METOPROLOL TARTRATE 25 MG TABLET PO SCH ×2 (09:15→18:00)
[2017-03-15] MEDS: APIXABAN 2.5 MG TABLET PO SCH ×2 (09:15→22:34)
[2017-03-15] MEDS: POLYETHYLENE GLYCOL 17 GM PACKET PO SCH (09:15)
[2017-03-15] MEDS: INSULIN DETEMIR 100 UNITS/ML, PEN SQ-INSULIN SCH (09:15)
[2017-03-15] MEDS: DOCUSATE 100 MG CAPSULE PO SCH ×2 (09:15→22:34)
[2017-03-15] MEDS: OxyconTIN ER 20 MG TAB.ER PO SCH ×2 (09:15→22:44)
[2017-03-15] MEDS: SPIRONOLACTONE 25 MG TABLET PO SCH (09:15)
[2017-03-15] MEDS: INSULIN ASPART 100 UNITS/ML, PEN SQ-INSULIN SCH ×4 (09:15→22:40)
[2017-03-15] MEDS: RISPERIDONE 1 MG TABLET PO SCH ×2 (09:15→22:34)
[2017-03-15] MEDS: DOXYCYCLINE 100 MG in DEXTROSE 5% 250 ML IV SCH ×2 (11:15→23:30)
[2017-03-15 12:14] LABS: ASPARTATE AMINO TRANSFERASE 18 U/L (15-37); BLOOD UREA NITROGEN 29 mg/dL (7-18)
[2017-03-15 15:31] VITALS: BP 132/54
[2017-03-15 15:58] VITALS: BP 117/63
[2017-03-15] MEDS: MORPHINE SULFATE 4 MG/ML, 1ML IV PRN (16:05)
[2017-03-15] MEDS: METHYLNALTREXONE 12 MG/0.6 ML SQ SCH (16:06)
[2017-03-15] MEDS ORDERED: SODIUM BICARB 8.4%, 50ML SYRINGE IV SCH (18:12)
[2017-03-15 18:23] VITALS: BP 152/67
[2017-03-15] MEDS ORDERED: ONDANSETRON 2MG/ML, 2ML IVPush PRN (18:30)
[2017-03-15 20:00] VITALS: BP 123/63
[2017-03-15] MEDS: LEVOFLOXACIN/PMX 500MG/100ML 100 ML IV SCH (21:54)
[2017-03-15] MEDS: ATORVASTATIN 40 MG TABLET PO SCH (22:34)
[2017-03-16] MEDS: MORPHINE SULFATE 4 MG/ML, 1ML IV PRN ×2 (01:53→16:30)
[2017-03-16 02:00] VITALS: BP 117/65
[2017-03-16] MEDS: ASPIRIN 81 MG TABLET EC PO SCH (05:35)
[2017-03-16] MEDS: LEVOTHYROXINE 175 MCG TABLET PO SCH (05:35)
[2017-03-16] MEDS: PANTOPRAZOLE 40 MG IV IVPush SCH ×2 (05:35→17:23)
[2017-03-16] MEDS: METOPROLOL TARTRATE 25 MG TABLET PO SCH ×2 (05:38→18:16)
[2017-03-16] MEDS: INSULIN ASPART 100 UNITS/ML, PEN SQ-INSULIN SCH ×4 (07:00→22:10)
[2017-03-16 08:00] VITALS: BP 126/66
[2017-03-16] MEDS: INSULIN DETEMIR 100 UNITS/ML, PEN SQ-INSULIN SCH (10:07)
[2017-03-16] MEDS: LISINOPRIL 10 MG TABLET PO SCH ×2 (10:09→22:04)
[2017-03-16] MEDS: DOCUSATE 100 MG CAPSULE PO SCH ×2 (10:10→22:03)
[2017-03-16] MEDS: APIXABAN 2.5 MG TABLET PO SCH (10:11)
[2017-03-16] MEDS: SPIRONOLACTONE 25 MG TABLET PO SCH (10:11)
[2017-03-16] MEDS: FUROSEMIDE 40 MG TABLET PO SCH (10:11)
[2017-03-16] MEDS: POLYETHYLENE GLYCOL 17 GM PACKET PO SCH (10:12)
[2017-03-16] MEDS: RISPERIDONE 1 MG TABLET PO SCH ×2 (10:12→22:03)
[2017-03-16] MEDS: CHOLECALCIFEROL 1,000 UNIT TABLET PO SCH (10:12)
[2017-03-16] MEDS: OxyconTIN ER 20 MG TAB.ER PO SCH ×2 (10:20→21:00)
[2017-03-16] MEDS: DOXYCYCLINE 100 MG in DEXTROSE 5% 250 ML IV SCH ×2 (10:51→23:43)
[2017-03-16 12:04] VITALS: BP 128/74
[2017-03-16] MEDS: LEVOFLOXACIN/PMX 500MG/100ML 100 ML IV SCH (17:23)
[2017-03-16 20:00] VITALS: BP 99/53
[2017-03-16 20:26] VITALS: BP 105/54
[2017-03-16] MEDS: ATORVASTATIN 40 MG TABLET PO SCH (22:04)
[2017-03-16 22:11] VITALS: BP 125/65
[2017-03-17] MEDS: MORPHINE SULFATE 4 MG/ML, 1ML IV PRN ×4 (01:06→22:44)
[2017-03-17 02:00] VITALS: BP 126/74
[2017-03-17 03:08] LABS: DIFF TOTAL CELLS COUNTED 100 CELL DIFF
[2017-03-17 03:38] LABS: VERIFY COUNTS? YES
[2017-03-17] MEDS: ASPIRIN 81 MG TABLET EC PO SCH (05:34)
[2017-03-17] MEDS: METOPROLOL TARTRATE 25 MG TABLET PO SCH ×2 (05:34→17:59)
[2017-03-17] MEDS: PANTOPRAZOLE 40 MG IV IVPush SCH ×2 (05:34→17:53)
[2017-03-17] MEDS: LEVOTHYROXINE 175 MCG TABLET PO SCH (05:42)
[2017-03-17] MEDS: INSULIN ASPART 100 UNITS/ML, PEN SQ-INSULIN SCH ×3 (07:00→18:10)
[2017-03-17 07:29] VITALS: BP 118/62
[2017-03-17] MEDS: POLYETHYLENE GLYCOL 17 GM PACKET PO SCH (08:36)
[2017-03-17] MEDS: LISINOPRIL 10 MG TABLET PO SCH ×2 (08:38→22:48)
[2017-03-17] MEDS: SPIRONOLACTONE 25 MG TABLET PO SCH (08:38)
[2017-03-17] MEDS: FUROSEMIDE 40 MG TABLET PO SCH (08:38)
[2017-03-17] MEDS: RISPERIDONE 1 MG TABLET PO SCH ×2 (08:40→21:12)
[2017-03-17] MEDS: OxyconTIN ER 20 MG TAB.ER PO SCH ×2 (08:40→21:12)
[2017-03-17] MEDS: CHOLECALCIFEROL 1,000 UNIT TABLET PO SCH (08:41)
[2017-03-17] MEDS: DOCUSATE 100 MG CAPSULE PO SCH ×2 (08:43→21:13)
[2017-03-17] MEDS ORDERED: INSULIN DETEMIR 100 UNITS/ML, PEN SQ-INSULIN SCH (09:00)
[2017-03-17] MEDS: DOXYCYCLINE 100 MG in DEXTROSE 5% 250 ML IV SCH ×2 (11:57→23:45)
[2017-03-17 14:24] VITALS: BP 119/73
[2017-03-17] MEDS: METHYLNALTREXONE 12 MG/0.6 ML SQ SCH (14:29)
[2017-03-17] MEDS: INSULIN DETEMIR 100 UNITS/ML, PEN SQ-INSULIN SCH (14:29)
[2017-03-17] MEDS: LEVOFLOXACIN/PMX 500MG/100ML 100 ML IV SCH (17:53)
[2017-03-17 17:59] LABS: OCCBLD OBC PASS
[2017-03-17 18:00] VITALS: BP 142/68
[2017-03-17 19:25] VITALS: BP 105/62
[2017-03-17] MEDS ORDERED: INSULIN ASPART 100 UNITS/ML, PEN SQ-INSULIN SCH (21:00)
[2017-03-17] MEDS: ATORVASTATIN 40 MG TABLET PO SCH (21:22)
[2017-03-18] MEDS: MORPHINE SULFATE 4 MG/ML, 1ML IV PRN ×2 (00:12→01:40)
[2017-03-18 01:35] VITALS: BP 110/61
[2017-03-18] MEDS: ASPIRIN 81 MG TABLET EC PO SCH (06:32)
[2017-03-18] MEDS: METOPROLOL TARTRATE 25 MG TABLET PO SCH (06:33)
[2017-03-18] MEDS: PANTOPRAZOLE 40 MG IV IVPush SCH ×2 (06:33→17:00)
[2017-03-18] MEDS: LEVOTHYROXINE 175 MCG TABLET PO SCH (06:33)
[2017-03-18] MEDS ORDERED: DEXTROSE 50%, 50ML VIAL IVPush ONE (07:00)
[2017-03-18] MEDS: INSULIN ASPART 100 UNITS/ML, PEN SQ-INSULIN SCH ×3 (07:00→17:47)
[2017-03-18] MEDS ORDERED: DEXTROSE 50%, 50ML VIAL ONE (07:26)
[2017-03-18] MEDS ORDERED: GLUCAGON 1 MG IM PRN (07:30)
[2017-03-18] MEDS ORDERED: DEXTROSE 50%, 50ML SYRINGE IVPush PRN (07:30)
[2017-03-18] MEDS ORDERED: DEXTROSE 4 GM TAB.CHEW PO PRN (07:30)
[2017-03-18 08:03] VITALS: BP 155/59
[2017-03-18] MEDS ORDERED: SODIUM CHLORIDE FLUSH 10ML SYR IVF SCH (09:00)
[2017-03-18] MEDS: INSULIN DETEMIR 100 UNITS/ML, PEN SQ-INSULIN SCH (09:00)
[2017-03-18 09:36] VITALS: BP 110/91
[2017-03-18] MEDS: POLYETHYLENE GLYCOL 17 GM PACKET PO SCH (09:39)
[2017-03-18] MEDS: OxyconTIN ER 20 MG TAB.ER PO SCH (09:41)
[2017-03-18] MEDS: DOCUSATE 100 MG CAPSULE PO SCH (09:41)
[2017-03-18] MEDS: RISPERIDONE 1 MG TABLET PO SCH (09:41)
[2017-03-18] MEDS: SPIRONOLACTONE 25 MG TABLET PO SCH (09:42)
[2017-03-18] MEDS: LISINOPRIL 10 MG TABLET PO SCH (09:42)
[2017-03-18] MEDS: CHOLECALCIFEROL 1,000 UNIT TABLET PO SCH (09:44)
[2017-03-18] MEDS: FUROSEMIDE 40 MG TABLET PO SCH (09:52)
[2017-03-18] MEDS: DOXYCYCLINE 100 MG in DEXTROSE 5% 250 ML IV SCH (12:07)
[2017-03-18] MEDS ORDERED: LISI-167 PO (12:46)
[2017-03-18] MEDS ORDERED: RISP1TAB45 PO (12:46)
[2017-03-18 14:26] VITALS: BP 124/65
[2017-03-18] MEDS: LEVOFLOXACIN/PMX 500MG/100ML 100 ML IV SCH (17:00)
[2017-03-18] MEDS ORDERED: APIX2.5T PO (17:22)
[2017-03-18] MEDS ORDERED: ATOR20TA9 PO (17:23)
[2017-03-18] MEDS ORDERED: ASPI-621 PO (17:23)
[2017-03-18] MEDS ORDERED: LEVO500T8 PO (17:36)
[2017-03-18] MEDS ORDERED: FURO20TA3 PO (17:37)
[2017-03-18] MEDS ORDERED: RISP1TAB3 PO (17:38)
[2017-03-18] MEDS ORDERED: DOXY100T PO (17:38)
[2017-03-18] MEDS ORDERED: INSU100V8 SQ (17:40)
[2017-03-18] MEDS ORDERED: INSU100V5 SQ-INSULIN (17:41)
== END 2017-03-18 19:02 | DRG 177 ==
LOC: ED 23:43 → EDIP 23:45 → CCU 03-08 00:40 → 5SO 03-10 16:17
PROVIDERS: ADMIT Internal Medicine; ATTEND Internal Medicine
DX: J15.0 Pneumonia due to Klebsiella pneumoniae (principal); E10.10 Type 1 diabetes mellitus with ketoacidosis without coma; I21.4 Non-ST elevation (NSTEMI) myocardial infarction; I50.43 Acute on chronic combined systolic (congestive) and diastolic (congestive) heart failure; N17.9 Acute kidney failure, unspecified; D68.69 Other thrombophilia; I48.92 Unspecified atrial flutter; F11.20 Opioid dependence, uncomplicated; I47.2 Ventricular tachycardia; J44.0 Chronic obstructive pulmonary disease with (acute) lower respiratory infection; L03.90 Cellulitis, unspecified; M48.54XA Collapsed vertebra, not elsewhere classified, thoracic region, initial encounter for fracture; I48.0 Paroxysmal atrial fibrillation; E03.9 Hypothyroidism, unspecified; E78.5 Hyperlipidemia, unspecified; E87.5 Hyperkalemia; Z86.12 Personal history of poliomyelitis; I49.5 Sick sinus syndrome; Z87.311 Personal history of (healed) other pathological fracture; I95.9 Hypotension, unspecified; D64.9 Anemia, unspecified; E10.42 Type 1 diabetes mellitus with diabetic polyneuropathy; E10.649 Type 1 diabetes mellitus with hypoglycemia without coma; E55.9 Vitamin D deficiency, unspecified; G89.29 Other chronic pain; I11.0 Hypertensive heart disease with heart failure; I25.10 Atherosclerotic heart disease of native coronary artery without angina pectoris; I25.2 Old myocardial infarction; I48.2 Chronic atrial fibrillation; I87.8 Other specified disorders of veins; I89.0 Lymphedema, not elsewhere classified; K21.9 Gastro-esophageal reflux disease without esophagitis; K44.9 Diaphragmatic hernia without obstruction or gangrene; K59.00 Constipation, unspecified; M41.80 Other forms of scoliosis, site unspecified; Z66 Do not resuscitate; Z79.01 Long term (current) use of anticoagulants; Z79.82 Long term (current) use of aspirin; Z79.899 Other long term (current) drug therapy; Z82.49 Family history of ischemic heart disease and other diseases of the circulatory system; Z82.5 Family history of asthma and other chronic lower respiratory diseases; Z87.01 Personal history of pneumonia (recurrent); Z87.891 Personal history of nicotine dependence; Z95.1 Presence of aortocoronary bypass graft; Z96.1 Presence of intraocular lens; Z98.41 Cataract extraction status, right eye; Z98.42 Cataract extraction status, left eye; Z90.49 Acquired absence of other specified parts of digestive tract
CPT/HCPCS: 36415; 71010; 74177; 78452; 80048; 80053; 81001; 81003; 82010; 82272; 82803; 82947; 82962; 83036; 83540; 83550; 83605; 83880; 83930; 84100; 84145; 84439; 84443; 84484; 85025; 85520; 85610; 85730; 87040; 87070; 87077; 87081; 87186; 87205; 93005; 93017; 96361; 96365; 96375; C8929; J0696; J1644; J1815; J1956; J2405; J2550; J2785; J3010; J7060; Q9967; A9502; C9113; C9898; J1940; J3475; J7030; J7050

== ENCOUNTER 2017-03-23 10:26 | Inpatient (IN) | payer OTHER ==
[~2017-03-23] VITALS: Ht 185.4 cm; Wt 97.6 kg
[~2017-03-23 10:26] MED LIST changes: +APIX2.5T PO; +ASPI-621 PO; +ATOR20TA9 PO; +DOCU-30 PO; +FURO20TA3 PO; +INSU100V5 SQ-INSULIN; +LEVO500T8 PO; +LISI-167 PO; +RISP1TAB3 PO; +RISP1TAB45 PO
[2017-03-23] MEDS ORDERED: SODIUM CHLORIDE 0.9% 1,000ML IVBOLUS ONE ×4 (11:00→22:30)
[2017-03-23] MEDS ORDERED: SODIUM CHLORIDE FLUSH 10ML SYR IVF ONE (11:00)
[2017-03-23] MEDS ORDERED: ONDANSETRON 2MG/ML, 2ML IVPush ONE (11:00)
[2017-03-23] MEDS ORDERED: ONDANSETRON 2MG/ML, 2ML ONE (11:29)
[2017-03-23] MEDS ORDERED: RISP1TAB3 PO ×2 (12:00)
[2017-03-23] MEDS ORDERED: ONDA4TAB7 PO (12:00)
[2017-03-23] MEDS ORDERED: CHOL200024 PO (12:00)
[2017-03-23] MEDS ORDERED: OXYC10TA6 PO (12:00)
[2017-03-23 12:12] LABS: BLOOD UREA NITROGEN 42 mg/dL (7-18)
[2017-03-23 12:17] LABS: ASPARTATE AMINO TRANSFERASE 77 U/L (15-37)
[2017-03-23 12:22] LABS: IS PT STATUS REG ER OR PRE ER? YES
[2017-03-23] MEDS ORDERED: PANTOPRAZOLE 40 MG IV ONE (13:20)
[2017-03-23] MEDS ORDERED: PANTOPRAZOLE 40 MG IV IVP ONE (13:30)
[2017-03-23] MEDS ORDERED: D5%-0.45NACL+KCL 20MEQ 1,000 ML IV SCH (15:59)
[2017-03-23] MEDS ORDERED: POLYETHYLENE GLYCOL 17 GM PACKET PO PRN (16:00)
[2017-03-23] MEDS ORDERED: DOCUSATE 100 MG CAPSULE PO PRN (16:00)
[2017-03-23] MEDS ORDERED: RISPERIDONE 1 MG TABLET PO PRN (16:00)
[2017-03-23] MEDS ORDERED: REGULAR INSULIN 62.5 UNITS in SODIUM CHLORIDE 0.9% 249.375 ML IV PRN ×2 (16:30→16:59)
[2017-03-23] MEDS ORDERED: CEFTRIAXONE PMX 2GM/50ML 50 ML ONE (17:06)
[2017-03-23] MEDS ORDERED: MORPHINE SULFATE 4 MG/ML, 1ML ONE (17:06)
[2017-03-23] MEDS: CEFTRIAXONE PMX 2GM/50ML 50 ML IV SCH (17:12)
[2017-03-23] MEDS: morphine SULFATE 10 MG/ML, 1ML IVPush PRN (17:13)
[2017-03-23] MEDS ORDERED: DEXTROSE 50%, 50ML VIAL ONE (18:12)
[2017-03-23 18:25] VITALS: BP 122/76
[2017-03-23] MEDS ORDERED: SODIUM CHLORIDE 0.9%, 500ML IVBOLUS ONE (18:30)
[2017-03-23] MEDS: DOXYCYCLINE 100 MG in DEXTROSE 5% 250 ML IV SCH (18:41)
[2017-03-23] MEDS ORDERED: D5%-0.9% NACL 1,000 ML IV SCH ×2 (20:00→20:53)
[2017-03-23] MEDS ORDERED: FENTANYL PF 100 MCG/2ML IV PRN (20:00)
[2017-03-23 20:24] LABS: ABG COLLECTION SITE RIGHT RADIAL; COLLATERAL CIRCULATION TESTING NORMAL
[2017-03-23] MEDS: LACTULOSE 10 GM/15 ML UDC PO SCH (20:26)
[2017-03-23] MEDS: LISINOPRIL 10 MG TABLET PO SCH (20:27)
[2017-03-23] MEDS: METOPROLOL TARTRATE 25 MG TABLET PO SCH (20:27)
[2017-03-23] MEDS: DOCUSATE 100 MG CAPSULE PO SCH (20:27)
[2017-03-23 20:33] LABS: BLOOD UREA NITROGEN 36 mg/dL (7-18)
[2017-03-23] MEDS ORDERED: FENTANYL PF 100 MCG/2ML ONE (20:48)
[2017-03-23] MEDS ORDERED: APIXABAN 2.5 MG TABLET PO SCH (21:00)
[2017-03-23] MEDS ORDERED: FENTANYL PF 100 MCG/2ML IVPush PRN (21:00)
[2017-03-23 21:26] LABS: ABG COLLECTION SITE RIGHT BRACHIAL
[2017-03-23] MEDS ORDERED: MAGNESIUM SULFATE PMX 2GM/50ML 50 ML IV ONE (21:30)
[2017-03-23] MEDS: ZOLPIDEM 5MG TABLET PO PRN (23:33)
[2017-03-24 00:36] LABS: ABG COLLECTION SITE LEFT BRACHIAL
[2017-03-24 00:48] LABS: BLOOD UREA NITROGEN 34 mg/dL (7-18)
[2017-03-24 00:52] LABS: IS PT STATUS REG ER OR PRE ER? NO
[2017-03-24 02:27] LABS: PATH.CAST-FLAG NOT PRESENT; SPERM-FLAG NOT PRESENT; SRC-FLAG NOT PRESENT; XTAL-FLAG NOT PRESENT; YLC-FLAG NOT PRESENT
[2017-03-24 04:00] VITALS: BP 115/60
[2017-03-24] MEDS: DOXYCYCLINE 100 MG in DEXTROSE 5% 250 ML IV SCH ×2 (04:13→16:33)
[2017-03-24 04:31] LABS: ABG COLLECTION SITE LEFT BRACHIAL
[2017-03-24 04:45] LABS: ASPARTATE AMINO TRANSFERASE 37 U/L (15-37); BLOOD UREA NITROGEN 30 mg/dL (7-18)
[2017-03-24 07:07] LABS: IS PT STATUS REG ER OR PRE ER? NO
[2017-03-24] MEDS: PANTOPRAZOLE 40 MG IV IVPush SCH (08:21)
[2017-03-24] MEDS: METHYLNALTREXONE 12 MG/0.6 ML SQ SCH (08:21)
[2017-03-24] MEDS: METOPROLOL TARTRATE 25 MG TABLET PO SCH ×2 (08:21→20:48)
[2017-03-24] MEDS: LEVOTHYROXINE 125 MCG TABLET PO SCH (08:22)
[2017-03-24] MEDS: LISINOPRIL 10 MG TABLET PO SCH ×2 (08:22→20:48)
[2017-03-24] MEDS: SPIRONOLACTONE 25 MG TABLET PO SCH (08:22)
[2017-03-24] MEDS: DOCUSATE 100 MG CAPSULE PO SCH ×2 (08:22→20:48)
[2017-03-24] MEDS: LACTULOSE 10 GM/15 ML UDC PO SCH ×2 (08:22→20:49)
[2017-03-24] MEDS: ASPIRIN 81 MG TABLET EC PO SCH (08:22)
[2017-03-24] MEDS ORDERED: SODIUM CHLORIDE 0.9% 1,000ML IVBOLUS ONE (08:30)
[2017-03-24] MEDS ORDERED: BISACODYL 10 MG SUPP PR PRN ×2 (08:30)
[2017-03-24] MEDS ORDERED: FUROSEMIDE 20 MG TABLET PO SCH (09:00)
[2017-03-24] MEDS: ONDANSETRON ODT 4 MG PO PRN (09:20)
[2017-03-24] MEDS: D5%-0.9% NACL 1,000 ML IV SCH (11:09)
[2017-03-24 12:56] LABS: OCCBLD OBC PASS
[2017-03-24] MEDS ORDERED: GLUCAGON 1 MG IM PRN (13:30)
[2017-03-24] MEDS ORDERED: DEXTROSE 50%, 50ML SYRINGE IVPush PRN (13:30)
[2017-03-24] MEDS ORDERED: DEXTROSE 4 GM TAB.CHEW PO PRN (13:30)
[2017-03-24] MEDS ORDERED: INSULIN ASPART 100 UNITS/ML, PEN SQ-INSULIN SCH (14:00)
[2017-03-24] MEDS: CEFTRIAXONE PMX 2GM/50ML 50 ML IV SCH (15:54)
[2017-03-24] MEDS: INSULIN ASPART 100 UNITS/ML, PEN SQ-INSULIN SCH ×2 (16:00→22:40)
[2017-03-24] MEDS: SODIUM CHLORIDE FLUSH 10ML SYR IVF SCH (20:49)
[2017-03-24] MEDS ORDERED: D5%-0.9% NACL 1,000 ML IV SCH (20:53)
[2017-03-24] MEDS ORDERED: SODIUM CHLORIDE 0.9% 1,000 ML IV SCH ×2 (23:00→23:09)
[2017-03-25 04:00] VITALS: BP 131/60
[2017-03-25] MEDS: DOXYCYCLINE 100 MG in DEXTROSE 5% 250 ML IV SCH (04:04)
[2017-03-25 04:52] LABS: ASPARTATE AMINO TRANSFERASE 22 U/L (15-37); BLOOD UREA NITROGEN 23 mg/dL (7-18)
[2017-03-25] MEDS: D5%-0.9% NACL 1,000 ML IV SCH (06:09)
[2017-03-25] MEDS: INSULIN ASPART 100 UNITS/ML, PEN SQ-INSULIN SCH ×5 (06:22→22:03)
[2017-03-25] MEDS: LACTULOSE 10 GM/15 ML UDC PO SCH ×2 (09:00→21:53)
[2017-03-25] MEDS: PANTOPRAZOLE 40 MG IV IVPush SCH (10:16)
[2017-03-25] MEDS: SPIRONOLACTONE 25 MG TABLET PO SCH (10:16)
[2017-03-25] MEDS: METOPROLOL TARTRATE 25 MG TABLET PO SCH ×2 (10:17→22:35)
[2017-03-25] MEDS: LEVOTHYROXINE 125 MCG TABLET PO SCH (10:17)
[2017-03-25] MEDS: ASPIRIN 81 MG TABLET EC PO SCH (10:17)
[2017-03-25] MEDS: SODIUM CHLORIDE FLUSH 10ML SYR IVF SCH ×2 (10:17→21:54)
[2017-03-25] MEDS: DOCUSATE 100 MG CAPSULE PO SCH ×2 (10:18→21:54)
[2017-03-25] MEDS: LISINOPRIL 10 MG TABLET PO SCH ×2 (10:18→21:53)
[2017-03-25] MEDS: INSULIN DETEMIR 100 UNITS/ML, PEN SQ-INSULIN SCH (10:20)
[2017-03-25] MEDS: APIXABAN 2.5 MG TABLET PO SCH (14:00)
[2017-03-25] MEDS: RISPERIDONE 0.5 MG TABLET PO SCH (21:53)
[2017-03-26] MEDS: INSULIN ASPART 100 UNITS/ML, PEN SQ-INSULIN SCH ×3 (02:18→12:43)
[2017-03-26 08:00] VITALS: BP 120/88
[2017-03-26] MEDS: PANTOPROZOLE 40MG TABLET PO SCH (08:42)
[2017-03-26] MEDS: SODIUM CHLORIDE FLUSH 10ML SYR IVF SCH ×2 (08:43→20:41)
[2017-03-26] MEDS: LEVOTHYROXINE 125 MCG TABLET PO SCH (08:46)
[2017-03-26] MEDS: morphine SULFATE 10 MG/ML, 1ML IVPush PRN (09:59)
[2017-03-26] MEDS: ASPIRIN 81 MG TABLET EC PO SCH (10:21)
[2017-03-26] MEDS: RISPERIDONE 0.5 MG TABLET PO SCH ×2 (10:22→20:42)
[2017-03-26] MEDS: SPIRONOLACTONE 25 MG TABLET PO SCH (10:22)
[2017-03-26] MEDS: APIXABAN 2.5 MG TABLET PO SCH (10:22)
[2017-03-26] MEDS: DOCUSATE 100 MG CAPSULE PO SCH ×2 (10:23→20:42)
[2017-03-26] MEDS: METHYLNALTREXONE 12 MG/0.6 ML SQ SCH (10:23)
[2017-03-26] MEDS: LACTULOSE 10 GM/15 ML UDC PO SCH ×2 (10:23→20:42)
[2017-03-26] MEDS: INSULIN DETEMIR 100 UNITS/ML, PEN SQ-INSULIN SCH (10:24)
[2017-03-26 11:30] LABS: BLOOD UREA NITROGEN 16 mg/dL (7-18)
[2017-03-26] MEDS: LISINOPRIL 10 MG TABLET PO SCH ×2 (11:34→20:42)
[2017-03-26] MEDS: METOPROLOL TARTRATE 25 MG TABLET PO SCH (11:34)
[2017-03-26 15:03] VITALS: BP 142/49
[2017-03-26] MEDS: INSULIN ASPART 100 UNITS/ML, 3ML PEN MEDIUM DOSE SS SQ-INSULIN SCH (16:53)
[2017-03-26 20:00] VITALS: BP 148/63
[2017-03-26] MEDS: OXYcodone IR 5MG TABLET PO PRN (20:41)
[2017-03-27] MEDS: morphine SULFATE 10 MG/ML, 1ML IVPush PRN (01:03)
[2017-03-27 02:00] VITALS: BP 134/68
[2017-03-27 04:52] LABS: ASPARTATE AMINO TRANSFERASE 11 U/L (15-37); BLOOD UREA NITROGEN 16 mg/dL (7-18)
[2017-03-27] MEDS: LEVOTHYROXINE 125 MCG TABLET PO SCH (06:28)
[2017-03-27] MEDS: INSULIN ASPART 100 UNITS/ML, 3ML PEN MEDIUM DOSE SS SQ-INSULIN SCH ×3 (07:51→17:23)
[2017-03-27] MEDS: PANTOPROZOLE 40MG TABLET PO SCH (07:52)
[2017-03-27 08:00] VITALS: BP 133/66
[2017-03-27] MEDS: RISPERIDONE 0.5 MG TABLET PO SCH (09:00)
[2017-03-27] MEDS: LACTULOSE 10 GM/15 ML UDC PO SCH ×2 (10:15→21:08)
[2017-03-27] MEDS: LISINOPRIL 10 MG TABLET PO SCH ×2 (10:16→21:09)
[2017-03-27] MEDS: DOCUSATE 100 MG CAPSULE PO SCH ×2 (10:16→21:08)
[2017-03-27] MEDS: ASPIRIN 81 MG TABLET EC PO SCH (10:16)
[2017-03-27] MEDS: SPIRONOLACTONE 25 MG TABLET PO SCH (10:16)
[2017-03-27] MEDS: APIXABAN 2.5 MG TABLET PO SCH ×2 (10:16→21:09)
[2017-03-27] MEDS: SODIUM CHLORIDE FLUSH 10ML SYR IVF SCH ×2 (10:17→21:08)
[2017-03-27] MEDS: INSULIN DETEMIR 100 UNITS/ML, PEN SQ-INSULIN SCH (10:17)
[2017-03-27] MEDS: OXYcodone IR 5MG TABLET PO PRN ×4 (10:26→22:24)
[2017-03-27 13:16] VITALS: BP 120/49
[2017-03-27 20:00] VITALS: BP 135/63
[2017-03-28 02:13] VITALS: BP 167/76
[2017-03-28] MEDS: OXYcodone IR 5MG TABLET PO PRN ×3 (02:17→16:22)
[2017-03-28] MEDS: LEVOTHYROXINE 125 MCG TABLET PO SCH (06:18)
[2017-03-28 07:00] VITALS: BP 135/74
[2017-03-28] MEDS: INSULIN ASPART 100 UNITS/ML, 3ML PEN MEDIUM DOSE SS SQ-INSULIN SCH ×3 (07:00→16:27)
[2017-03-28] MEDS: PANTOPROZOLE 40MG TABLET PO SCH (08:37)
[2017-03-28] MEDS: LISINOPRIL 10 MG TABLET PO SCH ×2 (08:38→20:14)
[2017-03-28] MEDS: APIXABAN 2.5 MG TABLET PO SCH ×2 (08:38→20:14)
[2017-03-28] MEDS: DOCUSATE 100 MG CAPSULE PO SCH ×2 (08:39→20:14)
[2017-03-28] MEDS: ASPIRIN 81 MG TABLET EC PO SCH (08:39)
[2017-03-28] MEDS: SPIRONOLACTONE 25 MG TABLET PO SCH (08:40)
[2017-03-28] MEDS: LACTULOSE 10 GM/15 ML UDC PO SCH ×2 (08:41→20:14)
[2017-03-28] MEDS: INSULIN DETEMIR 100 UNITS/ML, PEN SQ-INSULIN SCH (08:44)
[2017-03-28] MEDS: METHYLNALTREXONE 12 MG/0.6 ML SQ SCH (08:47)
[2017-03-28] MEDS: SODIUM CHLORIDE FLUSH 10ML SYR IVF SCH ×2 (08:48→20:14)
[2017-03-28 11:13] LABS: ASPARTATE AMINO TRANSFERASE 14 U/L (15-37); BLOOD UREA NITROGEN 15 mg/dL (7-18)
[2017-03-28 13:50] VITALS: BP 147/82
[2017-03-28 18:54] VITALS: BP 117/57
[2017-03-29 02:11] VITALS: BP 131/67
[2017-03-29] MEDS: LEVOTHYROXINE 125 MCG TABLET PO SCH (06:00)
[2017-03-29 07:00] VITALS: BP 154/74
[2017-03-29] MEDS: INSULIN ASPART 100 UNITS/ML, 3ML PEN MEDIUM DOSE SS SQ-INSULIN SCH ×3 (07:00→16:00)
[2017-03-29] MEDS: SPIRONOLACTONE 25 MG TABLET PO SCH (07:56)
[2017-03-29] MEDS: ASPIRIN 81 MG TABLET EC PO SCH (07:56)
[2017-03-29] MEDS: APIXABAN 2.5 MG TABLET PO SCH ×2 (07:56→20:07)
[2017-03-29] MEDS: LISINOPRIL 10 MG TABLET PO SCH ×2 (07:56→20:07)
[2017-03-29] MEDS: OXYcodone IR 5MG TABLET PO PRN ×3 (07:56→20:07)
[2017-03-29] MEDS: DOCUSATE 100 MG CAPSULE PO SCH ×2 (07:57→20:08)
[2017-03-29] MEDS: PANTOPROZOLE 40MG TABLET PO SCH (07:57)
[2017-03-29] MEDS: LACTULOSE 10 GM/15 ML UDC PO SCH ×2 (07:57→20:08)
[2017-03-29] MEDS: INSULIN DETEMIR 100 UNITS/ML, PEN SQ-INSULIN SCH (08:03)
[2017-03-29] MEDS: SODIUM CHLORIDE FLUSH 10ML SYR IVF SCH ×2 (08:05→20:11)
[2017-03-29 14:40] VITALS: BP 129/79
[2017-03-29] MEDS: metroNIDAZOLE 500 MG TABLET PO SCH ×2 (15:41→20:06)
[2017-03-29 19:38] VITALS: BP 129/67
[2017-03-29] MEDS ORDERED: DOCUSATE 100 MG CAPSULE PO PRN (20:00)
[2017-03-29] MEDS ORDERED: DEXTROSE 50%, 50ML SYRINGE IVPush PRN (20:00)
[2017-03-29] MEDS ORDERED: POLYETHYLENE GLYCOL 17 GM PACKET PO PRN (20:00)
[2017-03-29] MEDS ORDERED: BISACODYL 10 MG SUPP PR PRN (20:00)
[2017-03-29] MEDS: SULFAMETH./TRIMETHOPRIM DS 800MG/160MG TABLET PO SCH (20:06)
[2017-03-29] MEDS: ONDANSETRON ODT 4 MG PO PRN (20:07)
[2017-03-30] MEDS: ZOLPIDEM 5MG TABLET PO PRN (00:52)
[2017-03-30] MEDS ORDERED: OMNIPAQUE 350 MG/ML, 100ML BOTTLE ONE (01:36)
[2017-03-30 02:03] VITALS: BP 104/53
[2017-03-30] MEDS: metroNIDAZOLE 500 MG TABLET PO SCH ×3 (05:41→21:24)
[2017-03-30] MEDS: LEVOTHYROXINE 125 MCG TABLET PO SCH (05:42)
[2017-03-30] MEDS: OXYcodone IR 5MG TABLET PO PRN ×2 (05:42→12:29)
[2017-03-30] MEDS: INSULIN ASPART 100 UNITS/ML, 3ML PEN MEDIUM DOSE SS SQ-INSULIN SCH ×3 (07:00→17:08)
[2017-03-30] MEDS: PANTOPROZOLE 40MG TABLET PO SCH (08:19)
[2017-03-30] MEDS: METHYLNALTREXONE 12 MG/0.6 ML SQ SCH (08:19)
[2017-03-30 08:20] VITALS: BP 150/70
[2017-03-30] MEDS: DOCUSATE 100 MG CAPSULE PO SCH ×2 (08:20→21:23)
[2017-03-30] MEDS: LISINOPRIL 10 MG TABLET PO SCH ×2 (08:20→21:24)
[2017-03-30] MEDS: SPIRONOLACTONE 25 MG TABLET PO SCH (08:20)
[2017-03-30] MEDS: INSULIN DETEMIR 100 UNITS/ML, PEN SQ-INSULIN SCH (08:20)
[2017-03-30] MEDS: ASPIRIN 81 MG TABLET EC PO SCH (08:20)
[2017-03-30] MEDS: APIXABAN 2.5 MG TABLET PO SCH ×2 (08:20→21:24)
[2017-03-30] MEDS: SULFAMETH./TRIMETHOPRIM DS 800MG/160MG TABLET PO SCH ×2 (08:20→21:24)
[2017-03-30] MEDS: SODIUM CHLORIDE FLUSH 10ML SYR IVF SCH ×2 (08:22→21:23)
[2017-03-30] MEDS: LACTULOSE 10 GM/15 ML UDC PO SCH ×2 (08:41→21:24)
[2017-03-30 13:53] VITALS: BP 124/62
[2017-03-30] MEDS: FUROSEMIDE 20 MG TABLET PO SCH (17:02)
[2017-03-30 20:00] VITALS: BP 134/53
[2017-03-31 02:00] VITALS: BP 106/52
[2017-03-31 05:30] LABS: BLOOD UREA NITROGEN 25 mg/dL (7-18)
[2017-03-31 05:31] LABS: ASPARTATE AMINO TRANSFERASE 11 U/L (15-37)
[2017-03-31] MEDS: LEVOTHYROXINE 125 MCG TABLET PO SCH (06:14)
[2017-03-31] MEDS: metroNIDAZOLE 500 MG TABLET PO SCH ×3 (06:14→23:26)
[2017-03-31] MEDS: OXYcodone IR 5MG TABLET PO PRN ×3 (06:16→23:26)
[2017-03-31 07:44] VITALS: BP 104/54
[2017-03-31] MEDS: INSULIN DETEMIR 100 UNITS/ML, PEN SQ-INSULIN SCH (08:08)
[2017-03-31] MEDS: LACTULOSE 10 GM/15 ML UDC PO SCH ×2 (08:09→21:59)
[2017-03-31] MEDS: SULFAMETH./TRIMETHOPRIM DS 800MG/160MG TABLET PO SCH ×2 (08:09→22:00)
[2017-03-31] MEDS: INSULIN ASPART 100 UNITS/ML, 3ML PEN MEDIUM DOSE SS SQ-INSULIN SCH ×3 (08:09→16:50)
[2017-03-31] MEDS: APIXABAN 2.5 MG TABLET PO SCH ×2 (08:09→21:59)
[2017-03-31] MEDS: LISINOPRIL 10 MG TABLET PO SCH ×2 (08:09→22:00)
[2017-03-31] MEDS: ASPIRIN 81 MG TABLET EC PO SCH (08:10)
[2017-03-31] MEDS: SPIRONOLACTONE 25 MG TABLET PO SCH (08:10)
[2017-03-31] MEDS: DOCUSATE 100 MG CAPSULE PO SCH ×2 (08:10→21:59)
[2017-03-31] MEDS: FUROSEMIDE 20 MG TABLET PO SCH ×2 (08:10→16:45)
[2017-03-31] MEDS: PANTOPROZOLE 40MG TABLET PO SCH (08:10)
[2017-03-31] MEDS: SODIUM CHLORIDE FLUSH 10ML SYR IVF SCH ×2 (08:12→21:59)
[2017-03-31 14:00] VITALS: BP 136/77
[2017-03-31 19:40] VITALS: BP 101/58
[2017-03-31 21:59] VITALS: BP 137/80
[2017-04-01 01:33] VITALS: BP 127/72
[2017-04-01] MEDS: ZOLPIDEM 5MG TABLET PO PRN ×2 (01:33→21:44)
[2017-04-01 06:34] LABS: ASPARTATE AMINO TRANSFERASE 14 U/L (15-37); BLOOD UREA NITROGEN 25 mg/dL (7-18)
[2017-04-01] MEDS: OXYcodone IR 5MG TABLET PO PRN ×4 (06:34→23:41)
[2017-04-01] MEDS: LEVOTHYROXINE 125 MCG TABLET PO SCH (06:34)
[2017-04-01 07:08] VITALS: BP 118/70
[2017-04-01] MEDS: METHYLNALTREXONE 12 MG/0.6 ML SQ SCH (08:26)
[2017-04-01] MEDS: DOCUSATE 100 MG CAPSULE PO SCH ×2 (08:27→21:43)
[2017-04-01] MEDS: APIXABAN 2.5 MG TABLET PO SCH ×2 (08:27→21:43)
[2017-04-01] MEDS: PANTOPROZOLE 40MG TABLET PO SCH (08:27)
[2017-04-01] MEDS: FUROSEMIDE 20 MG TABLET PO SCH ×2 (08:27→17:28)
[2017-04-01] MEDS: ASPIRIN 81 MG TABLET EC PO SCH (08:27)
[2017-04-01] MEDS: LISINOPRIL 10 MG TABLET PO SCH ×2 (08:27→21:44)
[2017-04-01] MEDS: SULFAMETH./TRIMETHOPRIM DS 800MG/160MG TABLET PO SCH ×2 (08:27→21:44)
[2017-04-01] MEDS: metroNIDAZOLE 500 MG TABLET PO SCH ×2 (08:27→17:28)
[2017-04-01] MEDS: SPIRONOLACTONE 25 MG TABLET PO SCH (08:27)
[2017-04-01] MEDS: INSULIN ASPART 100 UNITS/ML, 3ML PEN MEDIUM DOSE SS SQ-INSULIN SCH ×3 (08:28→17:28)
[2017-04-01] MEDS: INSULIN DETEMIR 100 UNITS/ML, PEN SQ-INSULIN SCH (08:28)
[2017-04-01] MEDS: LACTULOSE 10 GM/15 ML UDC PO SCH ×2 (08:28→21:44)
[2017-04-01] MEDS: SODIUM CHLORIDE FLUSH 10ML SYR IVF SCH ×2 (08:59→21:00)
[2017-04-01 18:49] VITALS: BP 133/64
[2017-04-02] MEDS: metroNIDAZOLE 500 MG TABLET PO SCH ×2 (01:19→08:56)
[2017-04-02] MEDS: ZOLPIDEM 5MG TABLET PO PRN (01:19)
[2017-04-02 02:51] VITALS: BP 148/77
[2017-04-02] MEDS: LEVOTHYROXINE 125 MCG TABLET PO SCH (05:09)
[2017-04-02] MEDS: INSULIN ASPART 100 UNITS/ML, 3ML PEN MEDIUM DOSE SS SQ-INSULIN SCH ×2 (07:00→11:53)
[2017-04-02 08:01] VITALS: BP 127/73
[2017-04-02] MEDS: LISINOPRIL 10 MG TABLET PO SCH (08:56)
[2017-04-02] MEDS: APIXABAN 2.5 MG TABLET PO SCH (08:56)
[2017-04-02] MEDS: OXYcodone IR 5MG TABLET PO PRN ×2 (08:56→15:09)
[2017-04-02] MEDS: SULFAMETH./TRIMETHOPRIM DS 800MG/160MG TABLET PO SCH (08:56)
[2017-04-02] MEDS: ASPIRIN 81 MG TABLET EC PO SCH (08:57)
[2017-04-02] MEDS: DOCUSATE 100 MG CAPSULE PO SCH (08:57)
[2017-04-02] MEDS: SPIRONOLACTONE 25 MG TABLET PO SCH (08:57)
[2017-04-02] MEDS: SODIUM CHLORIDE FLUSH 10ML SYR IVF SCH (08:57)
[2017-04-02] MEDS: FUROSEMIDE 20 MG TABLET PO SCH (08:57)
[2017-04-02] MEDS: PANTOPROZOLE 40MG TABLET PO SCH (08:57)
[2017-04-02] MEDS: LACTULOSE 10 GM/15 ML UDC PO SCH (08:57)
[2017-04-02] MEDS: INSULIN DETEMIR 100 UNITS/ML, PEN SQ-INSULIN SCH (11:54)
[2017-04-02 14:02] VITALS: BP 109/60
[2017-04-02] MEDS ORDERED: FURO20TA3 PO (14:27)
== END 2017-04-02 16:00 | DRG 871 ==
LOC: ED 13:10 → EDIP 13:11 → ED 13:53 → CCU 18:00 → 4WST 03-27 18:36
PROVIDERS: ADMIT Hospitalist; ATTEND Hospitalist
DX: A41.9 Sepsis, unspecified organism (principal); K29.01 Acute gastritis with bleeding; E10.10 Type 1 diabetes mellitus with ketoacidosis without coma; J18.9 Pneumonia, unspecified organism; E46 Unspecified protein-calorie malnutrition; J98.11 Atelectasis; L03.116 Cellulitis of left lower limb; L03.115 Cellulitis of right lower limb; F11.20 Opioid dependence, uncomplicated; I48.2 Chronic atrial fibrillation; E86.0 Dehydration; D64.9 Anemia, unspecified; E03.9 Hypothyroidism, unspecified; E10.42 Type 1 diabetes mellitus with diabetic polyneuropathy; E10.649 Type 1 diabetes mellitus with hypoglycemia without coma; E86.1 Hypovolemia; G14 Postpolio syndrome; G89.29 Other chronic pain; I11.0 Hypertensive heart disease with heart failure; I25.10 Atherosclerotic heart disease of native coronary artery without angina pectoris; I08.0 Rheumatic disorders of both mitral and aortic valves; I50.9 Heart failure, unspecified; I89.0 Lymphedema, not elsewhere classified; J43.9 Emphysema, unspecified; T40.2X5A Adverse effect of other opioids, initial encounter; Z51.5 Encounter for palliative care; Z79.4 Long term (current) use of insulin; Z82.49 Family history of ischemic heart disease and other diseases of the circulatory system; Z82.5 Family history of asthma and other chronic lower respiratory diseases; Z87.891 Personal history of nicotine dependence; Z95.1 Presence of aortocoronary bypass graft; Z96.1 Presence of intraocular lens; Z98.41 Cataract extraction status, right eye; Z98.42 Cataract extraction status, left eye; M54.9 Dorsalgia, unspecified; Z68.28 Body mass index [BMI] 28.0-28.9, adult
CPT/HCPCS: 36415; 36600; 74022; 74178; 80048; 80053; 81001; 81003; 82010; 82272; 82800; 82803; 82962; 83690; 83735; 84484; 85025; 85610; 85730; 87077; 87081; 87086; 87106; 87186; 93005; 96361; 96374; 96375; J0696; J1815; J2405; J3010; J7042; J7060; Q0162; Q9967; C9113; J2270; J3475; J7030